=== PATIENT | male | born 1985 | race Caucasian/White ===

== ENCOUNTER 2017-03-05 12:09 | Emergency (ER) | payer OTHER | END 2017-03-05 14:16 | disposition home or self-care (01) | LOC: ER1 12:09 | DX: S39.012A Strain of muscle, fascia and tendon of lower back, initial encounter (principal); M51.27 Other intervertebral disc displacement, lumbosacral region; X50.9XXA Other and unspecified overexertion or strenuous movements or postures, initial encounter | CPT/HCPCS: 72131; 96372; 99283; J1885 ==

== ENCOUNTER 2020-09-26 20:16 | Emergency (ER) | payer OTHER ==
[2020-09-26 23:15] LABS: BUN/CREATININE RATIO 10 (0-10)
[2020-09-26 23:19] LABS: RED BLOOD COUNT 5.3 M/UL (4.20-5.50); WHITE BLOOD COUNT 10.9 K/UL (4.5-11.0)
== END 2020-09-27 00:07 | disposition home or self-care (01) ==
LOC: ER1 20:16
PROVIDERS: Physician Assistant Medical
DX: K59.00 Constipation, unspecified (principal); M54.5 Low back pain; R11.2 Nausea with vomiting, unspecified; I10 Essential (primary) hypertension
CPT/HCPCS: 80053; 81001; 85025; 96374; 99284; J1885